=== PATIENT | male | born 1950 | race Caucasian/White ===

== ENCOUNTER → 2018-05-29 | Emergency (ER) | payer MEDICARE ==
[~2018-05-29] VITALS: Ht 190.5 cm; Wt 118.2 kg
[~2018-05-29] MED LIST: GABA-532 PO; gabapentin 300mg capsule PO ONE; gabapentin 400mg capsule PO ONE; methylPREDNISolone sod succ 125mg/2ml vial IM ONE
[2018-05-29 09:31] VITALS: BP 114/76
== END | disposition home or self-care (01) ==
LOC: ER 09:30
DX: M54.5 Low back pain (principal); I10 Essential (primary) hypertension; G89.29 Other chronic pain; Z90.89 Acquired absence of other organs; Z60.2 Problems related to living alone
CPT/HCPCS: 96372; 99284; J2930

== ENCOUNTER 2023-05-07 10:21 | Observation (INO) | payer MEDICARE ==
[2023-04-30 12:04] LABS: ALBUMIN 3.8 G/DL (3.4-5.0); ALBUMIN/GLOBULIN RATIO 1.4 (1.1-1.5); ALKALINE PHOSPHATASE 64 IU/L (46-116); BLOOD UREA NITROGEN 16 MG/DL (7-18); BUN/CREATININE RATIO 15.2 (10.0-20.0); CALCIUM 8.7 MG/DL (8.5-10.1); CHLORIDE 102 MMOL/L (99-107); CREATININE 1.05 MG/DL (0.60-1.10); PRE OP ALT 25 U/L (30-65); PRE OP ANION GAP 5 (8-16); PRE OP AST 14 U/L (10-37); PRE OP BILIRUB, TOTAL 0.3 MG/DL (0.0-1.0); PRE OP GLUCOSE 176 MG/DL (70-104); PRE OP POTASSIUM 4.3 MMOL/L (3.4-5.1); PRE OP SODIUM 138 MMOL/L (135-145); TOTAL CARBON DIOXIDE 30.9 MMOL/L (24-32); TOTAL PROTEIN 6.5 G/DL (6.4-8.2); eGFR 69 ML/MIN
[2023-04-30 12:26] LABS: BASOPHILS # (AUTO) 0.1 X10'3 (0-0.2); BASOPHILS % (AUTO) 0.2 % (0-1); EOSINOPHILS # (AUTO) 0.1 X10'3 (0-0.9); EOSINOPHILS % (AUTO) 0.3 % (0-6)
[2023-04-30 12:28] LABS: LYMPHOCYTES # (AUTO) 35.2 X10'3 (1.1-4.8); LYMPHOCYTES % (AUTO) 85.8 % (21-51); MEAN CORPUSCULAR HEMOGLOBIN 29.8 PG (27.0-31.0); MEAN CORPUSCULAR HGB CONC 33.4 g/dL (33.0-36.5); MEAN CORPUSCULAR VOLUME 89.1 FL (78-98); MEAN PLATELET VOLUME 9.3 FL (7.4-10.4); MONOCYTES # (AUTO) 0.7 X10'3 (0-0.9); MONOCYTES % (AUTO) 1.8 % (2-12); NEUTROPHILS # (AUTO) 4.9 X10'3 (1.8-7.7); NEUTROPHILS % (AUTO) 11.9 % (42-75); PRE OP PLATELET COUNT 111 X10'3 (140-440); RED BLOOD COUNT 4.71 X10'6 (4.70-6.10); RED CELL DISTRIBUTION WIDTH 15.2 % (11.5-14.5)
[2023-04-30 13:36] LABS: TOTAL CELLS COUNTED 100
[2023-04-30 13:39] LABS: PLATELET ESTIMATE DECREASED; SMUDGE CELLS 1+
[~2023-05-07] VITALS: Ht 190.5 cm; Wt 107.0 kg
[2023-05-07] VITALS (26 sets, daily range): BP systolic 109–157; BP diastolic 60–87; PULSE 70–89; RESP 11–20; TEMP 97.1–97.7; O2SAT 89–99
[~2023-05-07 10:21] MED LIST changes: +APIX2.5T PO; +BUTA1TAB54 PO; +CHOL20004 PO; +CLON1TAB13 PO; +CYCL-1 PO; +DOXA8TAB90 PO; -GABA-532 PO; +LIDOcaine 2% (20mg/ml) 5ml vial ONE; +METF-438 PO; +NORT50CA PO; +OMEP20CA16 PO; +PRAV80TA3 PO; +PREG100C56 PO; +SAW450CA7 PO; +SUMA100T16 PO; +famotidine 20mg tablet PO ONE; +fentaNYL/PF 50MCG/1 ML 2ML syringe ONE; -gabapentin 300mg capsule PO ONE; -gabapentin 400mg capsule PO ONE; -methylPREDNISolone sod succ 125mg/2ml vial IM ONE; +midazolam 1 mg/ML 2ml injection ONE; +propofol inj 20 ML IV ONE; +ringers solution, lacted 1,000 ML IV SCH
[2023-05-07] MEDS ORDERED: fentaNYL/PF 50MCG/1 ML 2ML syringe ONE (12:11)
[2023-05-07] MEDS ORDERED: sevoflurane 250ml liquid IH ONE (12:14)
[2023-05-07] MEDS ORDERED: enalaprilat dihydrate 2.5mg/2ml vial IV PRN (13:00)
[2023-05-07] MEDS ORDERED: ondansetron/PF 4mg/2ml inj IV PRN (13:00)
[2023-05-07] MEDS ORDERED: ipratropium/albuterol 3ml nebule IH ONE (13:00)
[2023-05-07] MEDS ORDERED: HYDROmorphone/PF 0.2 MG/ML SYRINGE IV PRN (13:00)
[2023-05-07] MEDS ORDERED: morphine 2 MG/ML inj. syringe IV PRN (13:00)
[2023-05-07] MEDS ORDERED: ringers solution, lacted 1,000 ML IV SCH (13:00)
[2023-05-07] MEDS ORDERED: ondansetron/PF 4mg/2ml inj ONE (13:04)
[2023-05-07] MEDS ORDERED: propofol inj 20 ML IV ONE (13:04)
[2023-05-07] MEDS ORDERED: rocuronium 10mg/ml inj IV ONE ×2 (13:04→13:28)
[2023-05-07] MEDS ORDERED: dexamethasone sod phosphate 4mg/ml inj. ONE (13:04)
[2023-05-07] MEDS ORDERED: LIDOcaine 2% (20mg/ml) 5ml vial ONE (13:04)
[2023-05-07] MEDS ORDERED: ePHEDrine 50MG/ML INJ. ONE (13:10)
[2023-05-07] MEDS ORDERED: glycopyrrolate 0.2mg/ml inj ONE (14:08)
[2023-05-07] MEDS ORDERED: neostigmine methylsulfate 1 MG/ML 10ml vial ONE (14:08)
[2023-05-07] MEDS: HYDROmorphone/PF 0.2 MG/ML SYRINGE IV PRN ×2 (14:33→19:04)
[2023-05-07] MEDS ORDERED: morphine 4 MG/ML inj SYRINge IV STA (15:10)
[2023-05-07] MEDS ORDERED: clonazePAM 1mg tablet PO PRN (15:30)
[2023-05-07] MEDS ORDERED: SUMAtriptan 25 MG tablet PO PRN (15:30)
[2023-05-07] MEDS ORDERED: cyclobenzaprine 10mg tablet PO PRN (15:30)
[2023-05-07] MEDS ORDERED: butalbital/acetaminophen/caffeine (Fioricet) tablet PO PRN (15:30)
[2023-05-07] MEDS ORDERED: MESSAGE TO PHARMACY PO ONE (15:45)
[2023-05-07] MEDS ORDERED: dextrose 50%-water 50ml dispensing syringe IV PRN ×2 (15:45)
[2023-05-07] MEDS ORDERED: glucagon, human recombinant 1mg kit SUBCUT PRN (15:45)
[2023-05-07] MEDS ORDERED: DEXTROSE 15 GM of carb/4 tabs (each vial/BOTTLE has 4 tablets) PO PRN ×2 (15:45)
[2023-05-07] MEDS ORDERED: insulin Lispro (HumaLOG) vial - multi-dose SQ SCH (15:45)
[2023-05-07] MEDS ORDERED: naloxone 0.4 mg/ml inj IV PRN (15:45)
[2023-05-07] MEDS: HYDROmorph/NS 0.2 mg/ml PCA 100 ML IV SCH ×4 (16:52→23:00)
[2023-05-07] MEDS ORDERED: doxazosin mesylate 2mg tablet PO SCH (21:00)
[2023-05-07] MEDS ORDERED: pantoprazole 40mg Tablet.DR PO SCH (21:00)
[2023-05-07] MEDS ORDERED: SAW PALMETTO FRUIT 450 MG PO SCH (21:00)
[2023-05-07] MEDS ORDERED: pravastatin 40mg tablet PO SCH (21:00)
[2023-05-07] MEDS ORDERED: insulin glargine (Lantus) pen - multi-dose SQ SCH (21:00)
[2023-05-08] MEDS: HYDROmorph/NS 0.2 mg/ml PCA 100 ML IV SCH ×7 (01:00→14:16)
[2023-05-08 02:00] VITALS: BP 131/60; PULSE 72; RESP 12; TEMP 97.5; O2SAT 97
[2023-05-08 06:00] VITALS: BP 135/62; PULSE 69; RESP 12; TEMP 97.5; O2SAT 97
[2023-05-08 07:00] VITALS: RESP 12; O2SAT 97
[2023-05-08] MEDS ORDERED: cholecalciferol (vitamin D3) 1,000 unit (25mcg) tablet PO SCH (08:00)
[2023-05-08] MEDS ORDERED: nortriptyline 25mg capsule PO SCH (08:00)
[2023-05-08 11:00] VITALS: BP 153/82; PULSE 66; RESP 12; TEMP 97.2; O2SAT 97
[2023-05-08] MEDS ORDERED: PCA WASTE DOCUMENTATION 1 MG ML MC SCH (11:30)
== END 2023-05-08 14:21 | disposition home or self-care (01) ==
LOC: PRE-OP 10:21 → PCU 3S 15:34
PROVIDERS: ADMIT Internal Medicine Critical Care Medicine; ATTEND Internal Medicine Critical Care Medicine
DX: C34.90 Malignant neoplasm of unspecified part of unspecified bronchus or lung (principal); E11.9 Type 2 diabetes mellitus without complications; I11.0 Hypertensive heart disease with heart failure; I50.9 Heart failure, unspecified; E78.5 Hyperlipidemia, unspecified; I25.10 Atherosclerotic heart disease of native coronary artery without angina pectoris; I48.20 Chronic atrial fibrillation, unspecified; J93.9 Pneumothorax, unspecified; J43.9 Emphysema, unspecified; G43.909 Migraine, unspecified, not intractable, without status migrainosus; F41.9 Anxiety disorder, unspecified; N40.0 Benign prostatic hyperplasia without lower urinary tract symptoms; F17.200 Nicotine dependence, unspecified, uncomplicated; Z79.899 Other long term (current) drug therapy
CPT/HCPCS: 31624; 31628; 31653; 36415; 71045; 71250; 80053; 82948; 85007; 85025; 87015; 87070; 87102; 87116; 87206; 88341; 93005; 94640; 94760; 96365; 96366; 96375; 96376; G0378; J1100; J1170; J1815; J2270; J2405; J2704; J2710; J3010; J3490; J7040; J7120; 31622; 31625; 31626; 31627; 31654; 88172; 88173; 88305; 88342; A4615; A4618; J2250